=== PATIENT | male | born 1955 | race Caucasian/White ===

== ENCOUNTER → 2016-08-09 | Outpatient (CLI) | payer MEDICAID ==
[2016-08-09 11:08] LABS: ALT 37 U/L (21-72); AST 22 U/L (17-59); Cholesterol 165 mg/dL (<200); Creatine Kinase 94 U/L (55-170); HDL Cholesterol 49 mg/dL (40-60); Triglycerides 180 mg/dL (<150)
== END | disposition home or self-care (01) ==
LOC: LABWHC1 09:38
PROVIDERS: ATTEND Internal Medicine Interventional Cardiology
DX: I25.10 Atherosclerotic heart disease of native coronary artery without angina pectoris (principal); E78.5 Hyperlipidemia, unspecified
CPT/HCPCS: 36415; 80061; 82550; 84450; 84460

== ENCOUNTER → 2016-08-23 | Outpatient (CLI) | payer MEDICAID ==
[~2016-08-23] MED LIST: REGADENOSON 0.4 MG/5 ML SYRINGE IV ONE
--- NOTE | 2016-08-23 12:03 | NM ---
EXAMINATION TYPE: NM stress lexiscan cardiolite DATE OF EXAM: 08/23/2016 11:54 AM COMPARISON: 01/29/2013 HISTORY: Chest pain TECHNIQUE: After the intravenous administration of 10.7 mCi Tc 99m Sestamibi - Cardiolite resting SP ECT images acquired 50 minutes post injection. The patient received 0.4mg Lexiscan, 27.2 mCi Tc 99m Sestamibi - Stress images obtained [address] injection FINDINGS: Review of stress and rest SPECT images demonstrates fixed defect involving the inferior myocardium. G ated analysis shows normal wall motion with an estimated left ventricular ejection fraction of 61 %. IMPRESSION: No scintigraphic evidence for reversible ischemia.
--- NOTE | 2016-08-23 12:43 | EST ---
DATE OF SERVICE: 08/23/2016 AGE: 61Y SEX: M HT: 5'5" WT: 180 lbs. Protocol Blair: Other: Lexiscan Cardiolite Stage: Dur. of Exercise: *Heart Rate Blood Pressure *Rest: 54 Rest: 158/88 * *Max. Achieved: 94 Maximum BP: 194/105 85% PMHR: 134 100% PMHR: 158 *METS: INDICATION OF THE STUDY: Chest pain. MEDICATIONS: STRESS DATA: Pretesting physical examination showed a heart rate of 54, pressure is 158/88 mmHg. Baseline EKG showed sinus rhythm. The patient was given 0.4 mg Lexiscan over 15 seconds per protocol. The max heart rate was 94 beats per minute and maximum blood pressure was 194/105 mmHg. Clinically, the patient did not have any symptoms of chest pain or discomfort and the EKG did not show any significant ST or T wave abnormalities consistent with ischemia. CONCLUSION: 1. Nondiagnostic electrocardiogram stress testing in response to Lexiscan. 2. Please follow up on the Cardiolite portion on a separate report from radiology department.
== END | disposition home or self-care (01) ==
LOC: RADNMMAIN 08:12
PROVIDERS: ATTEND Internal Medicine Interventional Cardiology
DX: I20.9 Angina pectoris, unspecified (principal); I25.2 Old myocardial infarction
CPT/HCPCS: 93017; 78452; A9500; J2785

== ENCOUNTER → 2017-10-16 | Outpatient (CLI) | payer MEDICAID ==
[2017-10-16 09:10] LABS: ALT 28 U/L (21-72); AST 24 U/L (17-59); Cholesterol 157 mg/dL (<200); Creatine Kinase 106 U/L (55-170); HDL Cholesterol 46 mg/dL (40-60); LDL Cholesterol,Calculated 59 mg/dL (0-99); Triglycerides 258 mg/dL (<150)
== END | disposition home or self-care (01) ==
LOC: LABWHC1 08:16
PROVIDERS: ATTEND Internal Medicine Interventional Cardiology
DX: E78.2 Mixed hyperlipidemia (principal)
CPT/HCPCS: 36415; 80061; 82550; 84450; 84460

== ENCOUNTER → 2019-07-29 | Outpatient (CLI) | payer MEDICARE ==
--- NOTE | 2019-07-29 10:56 | NM ---
EXAMINATION TYPE: NM stress lexiscan cardiolite DATE OF EXAM: 07/29/2019 COMPARISON: Prior exam 08/23/2016 HISTORY: Cardiovascular disease TECHNIQUE: After the intravenous administration of 10.42 mCi Tc 99m Sestamibi - Cardiolite resting S PECT images acquired 45 minutes post injection. The patient received 0.4mg Lexiscan, 24.9 mCi Tc 99m Sestamibi - Stress images obtained [address] injection FINDINGS: Review of stress and rest SPECT images demonstrates decreased uptake along the inferior lateral left ventricle towards the cardiac apex on stress as compared to rest images, some decreased uptake is not ed towards the apex on both stress and rest images. Gated analysis shows normal wall motion with an estimated left ventricular ejection fraction of 60 %. 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 This message alert has been sent to Rosalee vega MD via the preferences provided by the clinician for the receipt of Radiology Critical Findings . Message ID [id number].
--- NOTE | 2019-07-29 13:27 | EST ---
EXERCISE STRESS DATE OF SERVICE: 07/29/2019 AGE: 64 SEX: Male HT: 68" WT: 206 pounds PROTOCOL: Lexiscan Cardiolite STAGE: DURATION OF EXERCISE: HEART RATE REST: 63 BLOOD PRESSURE REST: 146/93 MAXIMUM HEART RATE ACHIEVED: 87 MAXIMUM BLOOD PRESSURE: 156/80 85% MPHR: 100% MPHR: METS: INDICATIONS: Cardiovascular disease. CLINICAL INFORMATION: Lexiscan nuclear study was performed. Peak heart rate of 87 was achieved. Maximum blood pressure 156/80 mmHg was noted. Resting EKG shows a normal sinus rhythm with normal AK interval and QRS duration and normal ST-T waves. No ST-segment depression suggestive of ischemia is noted. The results of the nuclear study will follow. MMODL / IJN: [id number] /
== END | disposition home or self-care (01) ==
LOC: RADNMMAIN 07:34
PROVIDERS: ATTEND Internal Medicine Interventional Cardiology
DX: I25.10 Atherosclerotic heart disease of native coronary artery without angina pectoris (principal)
CPT/HCPCS: 93017; 78452; A9500; J2785

== ENCOUNTER → 2019-07-31 | Outpatient (CLI) | payer MEDICARE ==
[2019-07-31 10:51] LABS: HCT 47.6 % (39.0-53.0); HGB 15.4 gm/dL (13.0-17.5); MCH 30.4 pg (25.0-35.0); MCHC 32.4 g/dL (31.0-37.0); MCV 93.8 fL (80.0-100.0); Mean Platelet Volume 7.1; Platelet Count 395 k/uL (150-450); RBC 5.08 m/uL (4.30-5.90); RDW 12.9 % (11.5-15.5); WBC 8.5 k/uL (3.8-10.6)
[2019-07-31 11:05] LABS: African American GFR (CKD) >90 (>60 ml/min/1.73 sqM); Anion Gap 7 mmol/L; Blood Urea Nitrogen 12 mg/dL (9-20); Carbon Dioxide 30 mmol/L (22-30); Chloride 104 mmol/L (98-107); Glucose 93 mg/dL (74-99); Non-African American GFR(CKD) >90 (>60 ml/min/1.73 sqM); Potassium 5.3 mmol/L (3.5-5.1); Sodium 141 mmol/L (137-145)
== END | disposition home or self-care (01) ==
LOC: LABPAT 09:38
PROVIDERS: ATTEND Internal Medicine Interventional Cardiology
DX: Z01.812 Encounter for preprocedural laboratory examination (principal); I25.10 Atherosclerotic heart disease of native coronary artery without angina pectoris; I10 Essential (primary) hypertension
CPT/HCPCS: 80051; 82565; 82947; 84520; 85027

== ENCOUNTER 2019-08-13 06:18 | Day surgery (SDC) | payer MEDICARE ==
[2019-08-11 09:40] VITALS: BMI 31.0
[~2019-08-13 06:18] MED LIST changes: +ALPRAZolam 0.25 MG TAB PO PRN; +ALPRAZolam 0.5 MG TAB PO PRN; +NITROGLYCERIN SL TABS 0.4 MG TAB SUBLINGUAL PRN; -REGADENOSON 0.4 MG/5 ML SYRINGE IV ONE; +SODIUM CHLORIDE 0.9% 1,000 ML in EMPTY BAG 1 BAG IV ONE
[2019-08-13] MEDS ORDERED: ATORVASTATIN 80 MG TAB PO ONE (07:00)
[2019-08-13] MEDS ORDERED: ASPIRIN 325 MG TAB PO ONE (07:00)
[2019-08-13] MEDS ORDERED: VERAPAMIL 2.5 MG/ML 2 ML AMP ONE (07:17)
[2019-08-13] MEDS ORDERED: LIDOCAINE 1% INJ 10MG/ML (20 ML MDV) ONE (07:17)
[2019-08-13] MEDS ORDERED: HEPARIN SODIUM 1,000 UN/ML (10ML VL) ONE (07:17)
[2019-08-13] MEDS: MIDAZOLAM 2 MG/2 ML VIAL IV ONE ×2 (07:46→07:57)
[2019-08-13] MEDS ORDERED: LIDOCAINE 1% INJ 10MG/ML (20 ML MDV) SQ ONE (07:50)
[2019-08-13] MEDS: VERAPAMIL SYRINGE (5 MG/10 ML) INTRAARTER ONE ×2 (07:52→08:34)
[2019-08-13] MEDS ORDERED: HYDROmorphone 1 MG/ML 1 ML SYRINGE ONE (07:53)
[2019-08-13] MEDS ORDERED: HYDROmorphone 1 MG/ML 1 ML SYRINGE IVP ONE (07:56)
[2019-08-13] MEDS ORDERED: BIVALIRUDIN BOLUS 250 MG/50 ML IV ONE (08:09)
[2019-08-13] MEDS ORDERED: BIVALIRUDIN IV ONE (08:10)
[2019-08-13] MEDS ORDERED: SODIUM CHLORIDE 0.9% IV ONE (08:10)
[2019-08-13] MEDS ORDERED: IOPAMIDOL-370 100ML BTL INJ ONE ×2 (08:22→08:34)
[2019-08-13] MEDS: NITROGLYCERIN 1000MCG/10ML SYRINGE INTRACORON ONE ×2 (08:26→08:32)
[2019-08-13] MEDS ORDERED: TICAGRELOR 90 MG TAB ONE (08:28)
[2019-08-13] MEDS ORDERED: TICAGRELOR 90 MG TAB PO ONE (08:30)
--- NOTE | 2019-08-13 10:35 | CC ---
CARDIAC CATHETERIZATION REPORT DATE OF SERVICE: 08/13/2019 PROCEDURE: 1. Left heart catheterization and coronary angiography. 2. PTCA and stenting of mid circumflex with a drug-eluting stent. PERFORMED BY: Dr. Pretty Lee. Moderate conscious sedation time was 47 minutes. Patient was administered Versed. The oxygen saturation, hemodynamics and EKG were monitored closely. CLINICAL INFORMATION: Mr. Cabrera Terry is a 64-year-old gentleman with a known history of CAD. Since the past 12-14 years, he has had stenting of a circumflex performed. He had a myocardial infarction in the circumflex distribution, had a drug-eluting stent placed in 2007 and the last intervention was in 2010 and 3.0 caliber 18 mm drug-eluting stent was deployed at that time. Because of an abnormal stress test and symptoms of exertional shortness of breath and chest tightness, he came into the office, was advised coronary angiography after due discussion. Risks, benefits, options were explained. PROCEDURE NOTE: Under local anesthesia and strict aseptic precautions, a 6-Mongolian introducer was placed in the right radial artery. I used a JR4 catheter to perform selective coronary angiography of the right coronary artery and a JL4 guide catheter was used to perform intervention of the left system. I used a JL3.5 catheter for selective coronary angiography. Following coronary angiography, I proceeded to perform intervention. CARDIAC CATHETERIZATION FINDINGS: RIGHT CORONARY ARTERY: This is technically a dominant/codominant vessel, has good caliber proximally, some ectasias midportion. No significant disease distally, trifurcates into 3 branches, all of them small in caliber, but no significant disease. LEFT MAIN CORONARY ARTERY: This is a long patent disease-free vessel that bifurcates into LAD and circumflex. LEFT ANTERIOR DESCENDING CORONARY ARTERY: Good caliber vessel, extends along the anterior wall, gives off small septal and diagonal branches. No significant disease in the LAD system, but there are minor diffuse irregularities throughout. LEFT POSTERIOR CIRCUMFLEX CORONARY ARTERY: Technically, probably a codominant vessel, gives off a first obtuse marginal and then there is a stented segment which is patent. At the distal end of the stent and immediately after the stent, there was 80%-90% stenosis after which a second OM comes off and then it continues as a PDA branch. This is a codominant circumflex. There is therefore significant stenosis in the mid circumflex just after the stented segment of nearly 90%. Left ventriculogram was not performed. The same right coronary catheter was used to check LV pressures. IMPRESSION: This patient has normal filling pressures. Left ventricular end-diastolic pressure was about 8-10 mmHg. No gradient across the aortic valve. The codominant RCA is free of significant disease. Circumflex which was stented before is patent but just right after the stent, there was 80%-90% stenosis in the mid circumflex. LAD has minor diffuse irregularities, no significant disease. RECOMMENDATIONS: I recommended PCI of mid circumflex and proceeded to perform in the same setting. PCI PROCEDURE DETAILS: I used a JL4 guide catheter to cannulate the left coronary artery. Initially, a Whisper straight wire was used to cross the lesion, wire was kept distally. I tried to pre-dilated with a 2.5 12 NC trek, but I had difficulty since the 2.5 balloon kept going against the struts of the strands. I then switched over and added another run- through wire. I was able to advance over this run-through wire with the whisper wire as a ml. The 2.5 12 mm long NC Trek balloon and I pre-dilated the lesion. The same balloon was used to pre-dilate the proximal end of the previous stent also. I then deployed a 2.75 caliber, 12 mm Xience stent and deployed this at 14 atmospheres. Excellent angiographic result was achieved. At the junction of the previous stent and the new stent, there is still seemed to be some recoil. I therefore used a 12 mm NC Trek balloon, went up to 17 atmospheres and had an excellent angiographic result. Patient had EKG changes of inferior ST elevation, but no significant chest pain. Excellent angiographic result was achieved. He received Brilinta 180 mg orally and was already on aspirin. He received Angiomax bolus and infusion as per protocol. The sheath was in the right radial site was taken out and TR band applied as per protocol. The saturation of the fingers of the right hand of about 97%. Excellent angiographic result without complication was achieved. Results were discussed with the patient and his . I expect he will be discharged tomorrow if he remains stable. MMODL / IJN: [id number] /
[2019-08-13] MEDS ORDERED: SODIUM CHLORIDE 0.9% 1,000 ML IV ONE (11:30)
[2019-08-13 12:08] LABS: Glucose,Whole Blood 112 mg/dL (75-99)
[2019-08-13] MEDS ORDERED: LISINOPRIL 10 MG TAB PO SCH ×2 (13:09→21:00)
[2019-08-13] MEDS ORDERED: LISINOPRIL 20 MG TAB PO STA (13:15)
[2019-08-13] MEDS: SODIUM CHLORIDE 0.9% 1,000 ML IV SCH (14:28)
[2019-08-13] MEDS: NICOTINE 21MG/24HR PATCH TRANSDERM SCH (16:06)
[2019-08-13] MEDS ORDERED: amLODIPine 5 MG TAB PO STA (18:03)
[2019-08-14] MEDS: SODIUM CHLORIDE 0.9% 1,000 ML IV SCH (02:19)
[2019-08-14 06:15] VITALS: TEMP 97.7
[2019-08-14 07:58] VITALS: BP 146/90; PULSE 80; RESP 18
[2019-08-14] MEDS ORDERED: ASPIRIN 81 MG PO SCH (09:00)
[2019-08-14] MEDS ORDERED: METOPROLOL SUCCINATE (ER) 25 MG TAB.ER.24H PO SCH (09:00)
[2019-08-14] MEDS ORDERED: TICAGRELOR 90 MG TAB PO SCH (09:00)
[2019-08-14] MEDS: NICOTINE 21MG/24HR PATCH TRANSDERM SCH (09:19)
[2019-08-14 09:31] LABS: Basophils # (A) 0.1 k/uL (0-0.2); Basophils % (A) 1 %; Eosinophils # (A) 0.3 k/uL (0-0.7); Eosinophils % (A) 3 %; HCT 48.1 % (39.0-53.0); HGB 15.9 gm/dL (13.0-17.5); Lymphocytes % (A) 34 %; MCH 30.6 pg (25.0-35.0); MCV 92.6 fL (80.0-100.0); Mean Platelet Volume 7.3; Monocytes # (A) 0.5 k/uL (0-1.0); Monocytes % (A) 5 %; Neutrophils # (A) 4.8 k/uL (1.3-7.7); Neutrophils % (A) 55 %; Platelet Count 262 k/uL (150-450); RDW 13.3 % (11.5-15.5); WBC 8.8 k/uL (3.8-10.6)
[2019-08-14 09:48] LABS: African American GFR (CKD) >90 (>60 ml/min/1.73 sqM); Anion Gap 6 mmol/L; Blood Urea Nitrogen 11 mg/dL (9-20); Calcium 9.5 mg/dL (8.4-10.2); Carbon Dioxide 27 mmol/L (22-30); Chloride 104 mmol/L (98-107); Glucose 97 mg/dL (74-99); Non-African American GFR(CKD) >90 (>60 ml/min/1.73 sqM); Potassium 4.2 mmol/L (3.5-5.1); Sodium 137 mmol/L (137-145)
--- NOTE | 2019-08-14 13:31 | DS ---
DISCHARGE SUMMARY DATE OF ADMISSION: 08/13/2019 DATE OF DISCHARGE: 08/14/2019 DIAGNOSES: 1. Unstable angina with history of prior myocardial infarction. 2. Hypertension. 3. Hyperlipidemia. 4. Smoking and chronic obstructive pulmonary disease. 5. Peripheral arterial disease with right lower extremity moderate ischemia. Mr. Terry is a 64-year-old gentleman who continues to smoke, has had previous [place] in the circumflex distribution, underwent stenting on multiple occasions. Because of an abnormal stress test and exertional chest tightness and shortness of breath, he was brought in for an elective cardiac cath that was performed yesterday from right radial approach. Study revealed a significant 80% or more lesion involving the midcircumflex just beyond the previously stented segment. The left system and RCA were unchanged with minor irregularities. I performed stenting of this vessel with a drug eluting stent with excellent result. Postprocedure course was uneventful. His right radial cath site is clean and dry with a good pulse. Vitals are stable. No JVD. S1, S2 heard normally. Lungs are clear. Abdomen, lower extremity exam unchanged. Right radial cath site is clean and dry. The patient had some bradycardia yesterday while he was being monitored. The patient has underlying sleep apnea and I am recommending a sleep study. I gave him a prescription and this will be scheduled for him before he goes home. I reviewed all his medications. He will be on aspirin, Brilinta, combination of Zetia and simvastatin, a small dose of beta blockers, and lisinopril. He was advised smoking cessation which he is willing to try this time. He has been very persistent on not intending to quit smoking but now seems to be more receptive. Discharge instructions regarding activity, diet, medications were given. Labs were reviewed and were unremarkable. He was given an appointment to see me on August 18 at 3:00 p.m. He is advised to work with smoking cessation. MMODL / IJN: [id number] /
[2019-08-14] MEDS ORDERED: ATORVASTATIN 80 MG TAB PO SCH (21:00)
[2019-08-14] MEDS ORDERED: LISINOPRIL 10 MG TAB PO SCH (21:00)
== END 2019-08-14 10:51 | disposition home or self-care (01) ==
LOC: CATHCVL 06:18 → 3SCARD 11:46 → CATHCVL 08-14 10:51
PROVIDERS: ATTEND Internal Medicine Interventional Cardiology
DX: I25.110 Atherosclerotic heart disease of native coronary artery with unstable angina pectoris (principal); I25.2 Old myocardial infarction; I10 Essential (primary) hypertension; I73.9 Peripheral vascular disease, unspecified; E78.5 Hyperlipidemia, unspecified; E78.00 Pure hypercholesterolemia, unspecified; J44.9 Chronic obstructive pulmonary disease, unspecified; F17.210 Nicotine dependence, cigarettes, uncomplicated
CPT/HCPCS: 93458; 80048; 85025; C9600; C1769 ×3; C1887; C1725 ×2; C1874; C1894; S4990 ×2; J2250; J2001; J1170; J0583; J1644; Q9967

== ENCOUNTER 2020-02-14 18:45 | Observation (INO) | payer MEDICARE ==
--- NOTE | 2020-02-14 18:57 | ED ---
Chest Pain HPI - General Stated Complaint: chest pain Time Seen by Provider: 02/14/20 18:53 - Related Data Home Medications Medication Instructions Recorded Confirmed Ezetimibe [Zetia] 10 mg PO DAILY 08/11/19 08/13/19 Metoprolol Succinate [Toprol XL] 25 mg PO DAILY 08/11/19 08/13/19 Simvastatin [Zocor] 40 mg PO HS 08/11/19 08/13/19 lisinopriL [Zestril] 10 mg PO HS 08/11/19 08/13/19 Previous Rx's Medication Instructions Recorded Aspirin 81 mg PO DAILY #30 chew 08/14/19 Nicotine 21Mg/24Hr Patch [Habitrol] 1 patch TRANSDERM DAILY #30 patch 08/14/19 Nitroglycerin Sl Tabs [Nitrostat] 0.4 mg SUBLINGUAL Q5M PRN #25 tab 08/14/19 Ticagrelor [Brilinta] 90 mg PO BID #60 tab 08/14/19 Allergies Allergy/AdvReac Type Severity Reaction Status Date / Time No Known Allergies Allergy Verified 08/11/19 09:33 Review of Systems ROS Statement: Those systems with pertinent positive or pertinent negative responses have been documented in the HPI. ROS Other: All systems not noted in ROS Statement are negative. EKG Findings - EKG Comments: EKG Findings:: EKG is sinus rhythm 70. 174 QRS 100 QTc 435 Past Medical History Past Medical History: Cancer, Eye Disorder, Hyperlipidemia, Hypertension, Myocardial Infarction (HI) Additional Past Medical History / Comment(s): GLAUCOMA LT EYE. HX SKIN CANCER ON FACE. STENT CIRC 08/13/19 Last Myocardial Infarction Date:: 2011 History of Any Multi-Drug Resistant Organisms: None Reported Past Surgical History: Heart Catheterization With Stent Past Anesthesia/Blood Transfusion Reactions: No Reported Reaction Date of Last Stent Placement:: 2011 Past Psychological History: No Psychological Hx Reported Past Alcohol Use History: Occasional Additional Past Alcohol Use History / Comment(s): SMOKES ABOUT 1PPD SINCE AGE 24 Past Drug Use History: Marijuana Additional Drug Use History / Comment(s): SMOKES MARIJUANA DAILY-KNOWS TO REFRAIN FROM USE FOR AT LEAST 24 HOURS PRIOR TO PROCEDURE - Past Family History Father Family Medical History: Cancer Mother Family Medical History: Cancer Course Vital Signs 02/14/20 02/14/20 18:53 19:19 Temperature 100.6 F H Pulse Rate 79 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
[2020-02-14 19:23] LABS: Basophils # (A) 0.1 k/uL (0-0.2); Basophils % (A) 1 %; Eosinophils # (A) 0.8 k/uL (0-0.7); Eosinophils % (A) 6 %; HCT 40.6 % (39.0-53.0); HGB 13.4 gm/dL (13.0-17.5); Lymphocytes # (A) 2.5 k/uL (1.0-4.8); Lymphocytes % (A) 21 %; MCH 29.7 pg (25.0-35.0); MCV 90.2 fL (80.0-100.0); Mean Platelet Volume 7.4; Monocytes # (A) 0.8 k/uL (0-1.0); Monocytes % (A) 7 %; Neutrophils # (A) 7.4 k/uL (1.3-7.7); Neutrophils % (A) 64 %; Platelet Count 309 k/uL (150-450); RDW 12.9 % (11.5-15.5); WBC 11.7 k/uL (3.8-10.6)
[2020-02-14 19:33] LABS: Glucose 101 mg/dL (74-99); Total Protein 6.4 g/dL (6.3-8.2)
[2020-02-14 19:34] LABS: ALT 10 U/L (4-49); AST 14 U/L (17-59); African American GFR (CKD) >90 (>60 ml/min/1.73 sqM); Albumin 3.8 g/dL (3.5-5.0); Alkaline Phosphatase 64 U/L (38-126); Anion Gap 7 mmol/L; Blood Urea Nitrogen 14 mg/dL (9-20); Calcium 8.8 mg/dL (8.4-10.2); Carbon Dioxide 25 mmol/L (22-30); Chloride 101 mmol/L (98-107); Non-African American GFR(CKD) >90 (>60 ml/min/1.73 sqM); Potassium 4.2 mmol/L (3.5-5.1); Sodium 133 mmol/L (137-145); Total Bilirubin 0.8 mg/dL (0.2-1.3)
[2020-02-14 19:40] LABS: D-Dimer 1.04 mg/L FEU (<0.60); INR 0.9 (<1.2); Partial Thromboplastin Time 26.5 sec (22.0-30.0); Prothrombin Time 9.8 sec (9.0-12.0)
--- NOTE | 2020-02-14 19:50 | XR ---
EXAMINATION TYPE: XR chest 2V DATE OF EXAM: 02/14/2020 COMPARISON: 07/19/2008 HISTORY: Chest pain TECHNIQUE: FINDINGS: Heart and mediastinum are normal. There is coarse interstitial density throughout the lungs . There is relative poor inspiration. There are no hilar masses. There are chest leads. IMPRESSION: Coarse pulmonary density consistent with pulmonary fibrosis. This is a change compared to old exam. No heart failure seen. Acute interstitial pneumonia is possible.
[2020-02-14] MEDS ORDERED: NITROGLYCERIN SL TABS 0.4 MG TAB SUBLINGUAL PRN (20:15)
[2020-02-14] MEDS ORDERED: MORPHINE SULFATE 4 MG/ML SYRINGE IV PRN (20:15)
[2020-02-14] MEDS ORDERED: HEPARIN SODIUM,PORCINE 5,000 UNIT/ML 1 ML VIAL IV ONE (20:34)
[2020-02-14] MEDS ORDERED: HEPARIN SODIUM,PORCINE 5,000 UNIT/ML 1 ML VIAL IV PRN (20:34)
[2020-02-14] MEDS ORDERED: HEPARIN SOD,PORK IN 0.45% NACL 25,000 UNIT in 0.45% NACL 1 250ML.BAG IV SCH (20:45)
[2020-02-14] MEDS ORDERED: METOPROLOL TARTRATE 25 MG TAB PO SCH (21:00)
--- NOTE | 2020-02-14 21:21 | CT ---
EXAMINATION TYPE: CT angio chest DATE OF EXAM: 02/14/2020 COMPARISON: None HISTORY: Chest pain and shortness of breath. Post cardiac stent in Aug 2019. CT DLP: 569.9 mGycm Automated exposure control for dose reduction was used. CONTRAST: Performed with IV Contrast, patient injected with 100 mL of Isovue 370. There are 3-D post processed images. There is a 5.5 cm area of masslike infiltrate in the posterior left lower lobe posterior basal segmen t behind the heart. There is small left pleural effusion. There are scattered numerous noncalcified n odular densities in both lungs that measure up to 12 mm. There are enlarged paratracheal and anterior mediastinal multiple lymph nodes that measure up to 2.3 cm. There is subcarinal enlarged lymph node measuring 2.5 cm. There is bilateral bronchial adenopathy with lymph nodes up to 2 cm. There is normal contrast opacification of the pulmonary arteries. There are no filling defects. There is some anterior wedging of several mid thoracic vertebra up to 25%. There is spurring in the t horacic spine. The ribs appear intact. The upper abdominal soft tissues are intact. IMPRESSION: Numerous bilateral pulmonary nodules suggestive of malignancy. This could be metastatic disease. Mass like consolidation left lower lobe. I would consider both tumor and inflammatory process. Extensive bronchial and mediastinal adenopathy suggestive of malignancy. Sarcoidosis is in the differential diagnosis. No evidence of pulmonary embolism.
[2020-02-14] MEDS ORDERED: MELATONIN 5 MG TABLET PO SCH (23:15)
[2020-02-15 02:45] LABS: Basophils # (A) 0.1 k/uL (0-0.2); Basophils % (A) 1 %; Eosinophils % (A) 8 %; HCT 41.5 % (39.0-53.0); HGB 13.6 gm/dL (13.0-17.5); Lymphocytes # (A) 2.8 k/uL (1.0-4.8); Lymphocytes % (A) 24 %; MCH 29.8 pg (25.0-35.0); MCHC 32.7 g/dL (31.0-37.0); MCV 91.3 fL (80.0-100.0); Monocytes # (A) 0.8 k/uL (0-1.0); Monocytes % (A) 7 %; Neutrophils # (A) 6.9 k/uL (1.3-7.7); Neutrophils % (A) 59 %; Platelet Count 308 k/uL (150-450); RBC 4.55 m/uL (4.30-5.90); RDW 12.9 % (11.5-15.5); WBC 11.7 k/uL (3.8-10.6)
[2020-02-15 02:53] LABS: Cholesterol 101 mg/dL (<200); HDL Cholesterol 35 mg/dL (40-60); LDL Cholesterol,Calculated 30 mg/dL (0-99); Triglycerides 181 mg/dL (<150)
[2020-02-15 04:58] VITALS: TEMP 98
[2020-02-15 08:03] VITALS: BP 137/70; PULSE 71; RESP 16
[2020-02-15] MEDS ORDERED: ASPIRIN 81 MG PO SCH (09:00)
[2020-02-15] MEDS ORDERED: NICOTINE 14MG/24HR PATCH TRANSDERM SCH (09:00)
[2020-02-15] MEDS ORDERED: EZETIMIBE 10 MG TAB PO SCH (09:00)
[2020-02-15] MEDS ORDERED: CLOPIDOGREL 75 MG TAB PO SCH (09:00)
[2020-02-15] MEDS ORDERED: METOPROLOL TARTRATE 25 MG TAB PO SCH (09:00)
[2020-02-15] MEDS ORDERED: lisinopriL 10 MG TAB PO SCH (09:00)
[2020-02-15] MEDS ORDERED: ASPIRIN 325 MG TAB PO SCH (09:00)
[2020-02-15] MEDS ORDERED: ATORVASTATIN 80 MG TAB PO SCH (09:00)
--- NOTE | 2020-02-15 09:40 | P.CRDCN ---
History of Present Illness History of present illness: HISTORY OF PRESENTING ILLNESS This is a pleasant 64-year-old male past medical history significant for with coronary artery disease with recent PCI maintained on dual antiplatelet therapy, myocardial infarction 2010, hypertension, dyslipidemia, chronic nicotine dependence and daily marijuana use. He follows in the office with Dr. Lee. We have been asked to see in consultation for chest pain. He complains of a tightness across the chest started Saturday night while he was sitting down watching TV, was relieved at times with nitro but continued to come back all day Saturday prompting him to come in for evaluation. has also been coughing frequently. denies sob, dizziness, nausea, vomiting or diaphoresis. He states he has been coughing however his discomfort is not associated with this cough. He was febrile on admission. Of note according to the patient has chest dis comfort is different than his experienced in the past when he has required stenting. In July 2019 he underwent a Lexiscan stress test that revealed ovi-infarct pharmacologically induced ischemia. Prompting a cardiac catheterization. In August 2019 and left heart cath was performed revealing RCA with no obstructive disease with ectasia in the midportion, left main free of disease, LAD with no significant disease, circumflex with a stenosis in the midportion and nearly 90%, patent stent of the first OM with disease noted distal to the stent of approximately 80-90%. At that time he underwent successful angioplasty of the circumflex artery. DIAGNOSTICS EKG reveals sinus mechanism with no acute ST or T wave abnormalities noted. Chest xray coarse density consistent with pulmonary fibrosis that is a change compared to previous exam, acute interstitial pneumonia possible, no heart niharika lure seen. CTA of the chest reveals numerous bilateral pulmonary nodules suggestive of malignancy with a masslike consolidation in left lower lobe consideration for tumor versus inflammatory process, extensive bronchial and mediastinal adenopathy suggestive of malignancy also noted. Laboratory reviewed, WBC 11.7, hemoglobin 13.6, platelets 308, d-dimer 1.04, sodium 133, potassium 4.2, creatinine 0.82, magnesium 2.0, cardiac enzymes negative 3, NT proBNP 69, LDL 30 and HDL 35. Current cardiac medications include aspirin 81 mg daily, Plavix 75 mg daily, Zetia/simvastatin 10/40 mg daily, lisinopril 10 mg twice a day and Lopressor 25 mg daily.. REVIEW OF SYSTEMS At the time of my exam: CONSTITUTIONAL: Denies fever or chills. CARDIOVASCULAR: Denies chest pain, shortness of breath, orthopnea, PND or palpitations. RESPIRATORY: Denies cough. GASTROINTESTINAL: Denies abdominal pain, diarrhea, constipation, nausea or vomiting. MUSCULOSKELETAL: Denies myalgias. NEUROLOGIC: Denies numbness, tingling or weakness. ENDOCRINE: Denies fatigue, weight change, polydipsia or polyurina. GENITOURINARY: Denies burning, hematuria or urgency with micturation. HEMATOLOGIC: Denies history of anemia or bleeding. PHYSICAL EXAMINATION Blood pressure 137/70 heart rate 71 afebrile and maintaining oxygen saturation on room air. CONSTITUTIONAL: No apparent distress. HEENT: Head is normocephalic. Pupils are equal, round. Sclerae anicteric. Mucous membranes of the mouth are moist. No JVD. No carotid bruit. CHEST EXAMINATION: Lungs are clear to auscultation. No chest wall tenderness is noted on palpation or with deep breathing. HEART EXAMINATION: Regular rate and rhythm. S1, S2 heard. No murmurs, gallops or rub. ABDOMEN: Soft, nontender. Positive bowel sounds. EXTREMITIES: 2+ peripheral pulses, no lower extremity edema and no calf tenderness. NEUROLOGIC EXAMINATION: Patient is awake, alert and oriented x3. ASSESSMENT Chest pain Febrile illness Multiple lung nodules, malignancy versus inflammatory process Coronary artery disease maintained on dual antiplatelet therapy History of myocardial infarction 2010 Hypertension Dyslipidemia Chronic nicotine dependence Daily marijuana use PLAN An acute coronary event has been ruled out. Obtain 2D echocardiogram and doppler study to assess cardiac structure and function. Continue dual anti-platelet therapy and maximize his medical therapy in regards to cardiac pending pulmonary evaluation. Thank you kindly for this consultation. Nurse Practitioner note has been reviewed, I agree with a documented findings and plan of care. Patient was seen and examined. Past Medical History Past Medical History: Cancer, Eye Disorder, Hyperlipidemia, Hypertension, Myocardial Infarction ([place]) Additional Past Medical History / Comment(s): GLAUCOMA LT EYE. HX SKIN CANCER ON FACE. STENT CIRC 08/13/19 Last Myocardial Infarction Date:: 2011 History of Any Multi-Drug Resistant Organisms: None Reported Past Surgical History: Heart Catheterization With Stent Past Anesthesia/Blood Transfusion Reactions: No Reported Reaction Date of Last Stent Placement:: 2011 Past Psychological History: No Psychological Hx Reported Smoking Status: Current every day smoker Past Alcohol Use History: Occasional Additional Past Alcohol Use History / Comment(s): SMOKES ABOUT 1PPD SINCE AGE 24 Past Drug Use History: Marijuana Additional Drug Use History / Comment(s): SMOKES MARIJUANA DAILY-KNOWS TO REFRAIN FROM USE FOR AT LEAST 24 HOURS PRIOR TO PROCEDURE - Past Family History Father Family Medical History: Cancer Mother Family Medical History: Cancer Medications and Allergies Home Medications Medication Instructions Recorded Confirmed Type lisinopriL [Zestril] 10 mg PO BID 08/11/19 02/14/20 History Aspirin 81 mg PO DAILY #30 chew 08/14/19 02/14/20 Rx Nitroglycerin Sl Tabs [Nitrostat] 0.4 mg SUBLINGUAL Q5M PRN #25 tab 08/14/19 02/14/20 Rx Clopidogrel [Plavix] 75 mg PO DAILY 02/14/20 02/14/20 History Ezetimibe/Simvastatin [Vytorin 1 tab PO DAILY 02/14/20 02/14/20 History 10-40 mg] Metoprolol Tartrate [Lopressor] 25 mg PO DAILY 02/14/20 02/14/20 History Allergies Allergy/AdvReac Type Severity Reaction Status Date / Time No Known Allergies Allergy Verified 02/14/20 21:08 Physical Exam Vitals: Vital Signs Temp Pulse Pulse Pulse Resp BP BP 02/15/20 08:01 98 F 71 16 137/70 02/15/20 04:40 98 F 88 19 132/70 02/14/20 22:41 98.3 F 77 19 120/70 02/14/20 21:55 99.1 F 73 20 106/68 02/14/20 21:00 78 18 02/14/20 20:30 80 20 114/90 02/14/20 19:19 75 02/14/20 18:53 100.6 F H 79 21 124/71 Pulse Ox 02/15/20 08:01 96 02/15/20 04:40 95 02/14/20 22:41 94 L 02/14/20 21:55 93 L 02/14/20 21:00 95 02/14/20 20:30 94 L 02/14/20 19:19 02/14/20 18:53 96 Intake and Output 02/14/20 02/15/20 02/15/20 22:59 06:59 14:59 Intake Total 52.151 Balance 52.151 Intake: Intake, IV Titration 52.151 Amount Heparin Sod,Pork in 0.45% 52.151 NaCl 25,000 unit In 0.45 % NaCl 1 250ml.bag @ 11.6 UNITS/KG/HR 9.997 mls/hr IV .Q24H [facility] Rx#: [id number] Other: Voiding Method Toilet Toilet # Voids 1 Weight 86.183 kg Results 02/15/20 02:33 02/14/20 19:14 Cardiac Enzymes 02/14/20 02/14/20 02/14/20 Range/Units 19:14 19:14 22:28 AST 14 L (17-59) U/L Troponin I <0.012 <0.012 (0.000-0.034) ng/mL 02/15/20 Range/Units 02:33 AST (17-59) U/L Troponin I <0.012 (0.000-0.034) ng/mL Coagulation 02/14/20 02/15/20 Range/Units 19:14 02:33 PT 9.8 (9.0-12.0) sec APTT 26.5 24.6 (22.0-30.0) sec Lipids 02/15/20 Range/Units 02:33 Triglycerides 181 H (<150) mg/dL Cholesterol 101 (<200) mg/dL HDL Cholesterol 35 L (40-60) mg/dL CBC 02/14/20 02/15/20 Range/Units 19:14 02:33 WBC 11.7 H 11.7 H (3.8-10.6) k/uL RBC 4.50 4.55 (4.30-5.90) m/uL Hgb 13.4 13.6 (13.0-17.5) gm/dL Hct 40.6 41.5 (39.0-53.0) % Plt Count 309 308 (150-450) k/uL Comprehensive Metabolic Panel 02/14/20 Range/Units 19:14 Sodium 133 L (137-145) mmol/L Potassium 4.2 (3.5-5.1) mmol/L Chloride 101 (98-107) mmol/L Carbon Dioxide 25 (22-30) mmol/L BUN 14 (9-20) mg/dL Creatinine 0.82 (0.66-1.25) mg/dL Glucose 101 H (74-99) mg/dL Calcium 8.8 (8.4-10.2) mg/dL AST 14 L (17-59) U/L ALT 10 (4-49) U/L Alkaline Phosphatase 64 (38-126) U/L Total Protein 6.4 (6.3-8.2) g/dL Albumin 3.8 (3.5-5.0) g/dL Current Medications Generic Name Dose Route Start Last Admin Trade Name Freq PRN Reason Stop Dose Admin Aspirin 81 mg 02/15/20 09:00 Aspirin PO DAILY [facility] Atorvastatin Calcium 80 mg 02/15/20 09:00 Lipitor PO DAILY [facility] Clopidogrel Bisulfate 75 mg 02/15/20 09:00 Plavix PO DAILY [facility] Heparin Sodium (Porcine) 0 unit 02/14/20 20:34 02/15/20 03:05 Heparin IV 4,000 unit PER PROTOCOL PRN Administration Low PTT Protocol Lisinopril 10 mg 02/15/20 09:00 Zestril PO BID [facility] Melatonin 5 mg 02/14/20 23:15 02/14/20 23:19 Melatonin PO 5 mg HS [facility] Administration Metoprolol Tartrate 25 mg 02/15/20 09:00 Lopressor PO DAILY [facility] Morphine Sulfate 4 mg 02/14/20 20:15 Morphine Sulfate (Inj) IV Q4HR PRN Chest Pain Nicotine 1 patch 02/15/20 09:00 Habitrol 14mg/24hr Patch TRANSDERM DAILY [facility] Nitroglycerin 0.4 mg 02/14/20 20:15 Nitrostat SUBLINGUAL Q5M PRN Chest Pain Non-Formulary Medication 1 tab 02/15/20 09:00 Ezetimibe/Simvastatin [Vytorin 10-40 Mg] PO DAILY [facility] Intake and Output 02/14/20 02/15/20 02/15/20 22:59 06:59 14:59 Intake Total 52.151 Balance 52.151 Intake: Intake, IV Titration 52.151 Amount Heparin Sod,Pork in 0.45% 52.151 NaCl 25,000 unit In 0.45 % NaCl 1 250ml.bag @ 11.6 UNITS/KG/HR 9.997 mls/hr IV .Q24H [facility] Rx#: [id number] Other: Voiding Method Toilet Toilet # Voids 1 Weight 86.183 kg 02/15/20 02:33 02/14/20 19:14
--- NOTE | 2020-02-15 11:33 | ECHOF ---
Referral Reason: MEASUREMENTS -------- HEIGHT: 172.7 cm WEIGHT: 86.2 kg BP: 137/70 RVIDd: 3.4 cm (< 3.3) IVSd: 1.3 cm (0.6 - 1.1) LVIDd: 4.0 cm (3.9 - 5.3) LVPWd: 1.3 cm (0.6 - 1.1) IVSs: 1.8 cm LVIDs: 2.9 cm LVPWs: 1.8 cm LA Diam: 3.6 cm (2.7 - 3.8) LAESV Index (A-L): 21.73 ml/m Ao Diam: 3.5 cm (2.0 - 3.7) AV Cusp: 2.0 cm (1.5 - 2.6) MV EXCURSION: 13.883 mm (> 18.000) MV EF SLOPE: 70 mm/s (70 - 150) EPSS: 0.6 cm MV E Shashi: 0.72 m/s MV DecT: 248 ms MV A Shashi: 1.00 m/s MV E/A Ratio: 0.73 RAP: 5.00 mmHg RVSP: 27.65 mmHg FINDINGS -------- Sinus rhythm. This was a technically adequate study. The left ventricular size is normal. There is mild concentric left ventricular hypertrophy. Overa ll left ventricular systolic function is normal with, an EF between 60 - 65 %. The right ventricle is mildly enlarged. Normal LA size by volume 22+/-6 ml/m2. The right atrium is normal in size. Interatrial and interventricular septum intact. The aortic valve is trileaflet and appears structurally normal. Mild tricuspid regurgitation present. Right ventricular systolic pressure is normal at < 35 mmHg. Trace/mild (physiologic) pulmonic regurgitation. The aortic root size is normal. Normal inferior vena cava with normal inspiratory collapse consistent with estimated right atrial pre ssure of 5 mmHg. There is no pericardial effusion. CONCLUSIONS -------- 1. Sinus rhythm. 2. The left ventricular size is normal. 3. There is mild concentric left ventricular hypertrophy. 4. Overall left ventricular systolic function is normal with, an EF between 60 - 65 %. 5. The right ventricle is mildly enlarged. 6. The aortic valve is trileaflet and appears structurally normal. 7. Mild tricuspid regurgitation present. 8. Trace/mild (physiologic) pulmonic regurgitation. 9. There is no pericardial effusion. SUPERVISOR QUILTING: Lena Pires RDCS
--- NOTE | 2020-02-15 15:11 | P.CNPUL ---
History of Present Illness Consult date: 02/15/20 Requesting physician: Cynthia Bass Reason for consult: other (Abnormal CT of the chest, chest pain.) Chief complaint: Chest pain. History of present illness: This is a 64-year-old white male with history of coronary artery disease, recent PCI, maintained on antiplatelet therapy, previous TN in 2010, [id number] smoker, normally sees Dr. Lee in the office for his coronary artery disease. Patient presented to the ER mostly with sudden tightness across the chest, started Saturday night, and he was sitting watching TV. Pain was at times relieved with nitroglycerin, but continued to come back and forth throughout Saturday he had patient had no shortness of breath, no fever, no chills, no h emoptysis, denies any weight loss. Patient was seen in the ER, and he was noted to have a low-grade fever. T-max of 100.6. Chest x-ray showed coarse interstitial changes in both lungs. Hence a CT of the chest was done, and it showed numerous bilateral pulmonary nodules, and a masslike consolidation in the left lower lobe. Hence this consult was initiated. Patient denies symptoms to suggest pneumonia, and after reviewing the CT of the chest, I felt the patient may have a mass in the left lower lobe, not clearly seen on the chest x-ray, but definitely seen and quite suspicious on the CT of the chest. I did recommend a CT-guided needle biopsy since the mass seems to be peripheral, however the patient is on Plavix, and I felt this could be handled on outpatient basis. In the meantime, I will recommend empiric antibiotics, and should have close outpatient follow-up. Patient was seen by cardiology, and his pain was felt to be noncardiac in nature, his echocardiogram was basically unremarkable. Review of Systems CONSTITUTIONAL: Denies any weight loss, he has low-grade fever, no chills. CARDIOVASCULAR: As noted in HPI, mostly chest pains across the chest. RESPIRATORY: Denies cough. Denies shortness of breath, denies hemoptysis. GASTROINTESTINAL: Denies abdominal pain, diarrhea, constipation, nausea or vomiting. MUSCULOSKELETAL: Denies myalgias. NEUROLOGIC: Denies numbness, tingling or weakness. ENDOCRINE: Denies fatigue, weight change, polydipsia or polyurina. GENITOURINARY: Denies burning, hematuria or urgency with micturation. HEMATOLOGIC: Denies history of anemia or bleeding. Past Medical History Past Medical History: Cancer, Eye Disorder, Hyperlipidemia, Hypertension, Myocardial Infarction ([place]) Additional Past Medical History / Comment(s): GLAUCOMA LT EYE. HX SKIN CANCER ON FACE. STENT CIRC 08/13/19 Last Myocardial Infarction Date:: 2011 History of Any Multi-Drug Resistant Organisms: None Reported Past Surgical History: Heart Catheterization With Stent Past Anesthesia/Blood Transfusion Reactions: No Reported Reaction Date of Last Stent Placement:: 2011 Past Psychological History: No Psychological Hx Reported Smoking Status: Current every day smoker Past Alcohol Use History: Occasional Additional Past Alcohol Use History / Comment(s): SMOKES ABOUT 1PPD SINCE AGE 24 Past Drug Use History: Marijuana Additional Drug Use History / Comment(s): SMOKES MARIJUANA DAILY-KNOWS TO REFRAIN FROM USE FOR AT LEAST 24 HOURS PRIOR TO PROCEDURE - Past Family History Father Family Medical History: Cancer Mother Family Medical History: Cancer Medications and Allergies Home Medications Medication Instructions Recorded Confirmed Type lisinopriL [Zestril] 10 mg PO BID 08/11/19 02/14/20 History Aspirin 81 mg PO DAILY #30 chew 08/14/19 02/14/20 Rx Nitroglycerin Sl Tabs [Nitrostat] 0.4 mg SUBLINGUAL Q5M PRN #25 tab 08/14/19 02/14/20 Rx Clopidogrel [Plavix] 75 mg PO DAILY 02/14/20 02/14/20 History Ezetimibe/Simvastatin [Vytorin 1 tab PO DAILY 02/14/20 02/14/20 History 10-40 mg] Metoprolol Tartrate [Lopressor] 25 mg PO DAILY 02/14/20 02/14/20 History Allergies Allergy/AdvReac Type Severity Reaction Status Date / Time No Known Allergies Allergy Verified 02/14/20 21:08 Physical Exam Vitals: Vital Signs Temp Pulse Pulse Pulse Resp BP BP 02/15/20 08:01 98 F 71 16 137/70 02/15/20 04:40 98 F 88 19 132/70 02/14/20 22:41 98.3 F 77 19 120/70 02/14/20 21:55 99.1 F 73 20 106/68 02/14/20 21:00 78 18 02/14/20 20:30 80 20 114/90 02/14/20 19:19 75 02/14/20 18:53 100.6 F H 79 21 124/71 Pulse Ox 02/15/20 08:01 96 02/15/20 04:40 95 02/14/20 22:41 94 L 02/14/20 21:55 93 L 02/14/20 21:00 95 02/14/20 20:30 94 L 02/14/20 19:19 02/14/20 18:53 96 Intake and Output 02/15/20 02/15/20 02/15/20 06:59 14:59 22:59 Intake Total 52.151 Balance 52.151 Intake: Intake, IV Titration 52.151 Amount Heparin Sod,Pork in 0.45% 52.151 NaCl 25,000 unit In 0.45 % NaCl 1 250ml.bag @ 11.6 UNITS/KG/HR 9.997 mls/hr IV .Q24H [facility] Rx#: [id number] Other: Voiding Method Toilet Toilet # Voids 1 1 Physical Exam: Revealed a 64-year-old white male in no distress. Head: Atraumatic, normocephalic. HEENT:[Neck is supple.] [No neck masses.] [No thyromegaly.] [No JVD.] Chest: [Minimal fine Velcro crackles at the bases bilaterally. Cardiac Exam: [Normal S1 and S2, no S3 gallop, no murmur.] Abdomen: [Soft, nontender, no megaly, no rebound, no guarding, normal bowel sounds.] Extremities: [No clubbing, no edema, no cyanosis.] Neurological Exam: [No focal neurologic deficit.] Alert oriented 3. Psychiatric: Normal mood affect and normal mental status examination. Skin: No rashes. Lymphatics: No lymphadenopathy. Results - Laboratory Findings CBC and BMP: 02/15/20 02:33 02/14/20 19:14 PT/INR, D-dimer PT 9.8 sec (9.0-12.0) 02/14/20 19:14 INR 0.9 (<1.2) 02/14/20 19:14 D-Dimer 1.04 mg/L FEU (<0.60) H 02/14/20 19:14 Abnormal lab findings: Abnormal Labs 02/14/20 02/14/2020 19:14 19:14 19:14 WBC 11.7 H Eosinophils # 0.8 H D-Dimer 1.04 H Sodium 133 L Glucose 101 H AST 14 L Triglycerides HDL Cholesterol 02/15/20 02/15/20 02:33 02:33 WBC 11.7 H Eosinophils # 1.0 H D-Dimer Sodium Glucose AST Triglycerides 181 H HDL Cholesterol 35 L - Diagnostic Findings CT scan - chest: image reviewed (As noted in HPI.) Assessment and Plan Assessment: Impression: Atypical chest pain. Strongly suspect interstitial lung disease/pulmonary fibrosis. Chronic obstructive pulmonary disease is strongly suspected. Left lower lobe mass, differential diagnoses includes primary bronchogenic carcinoma and or pneumonia involving the left lower lobe posteriorly. Nonspecific pulmonary nodules metastatic disease is a possibility, but felt to be less likely. Benign essential hypertension. Coronary artery disease and previous [place]. Chronic nicotine dependence. Daily marijuana use. Recommendation: Consider discharging the patient home on oral antibiotics, suggest Levaquin 500 milligrams daily for 10 days. Should have outpatient follow-up with me in the office within 2 weeks. Will likely arrange for outpatient CT-guided biopsy of left lower lobe mass. Plavix would have to be placed on hold 5 days prior. Could also consider bronchoscopy and transbronchial biopsy on outpatient basis to evaluate the left lower lobe abnormality. Will likely arrange for a PET scan on outpatient basis. Counseled regarding smoking cessation. Patient will definitely need outpatient follow-up. And he was made aware of this. Time with Patient: Greater than 30
--- NOTE | 2020-02-15 16:34 | P.HPIM ---
History of Present Illness H&P Date: 02/15/20 Chief Complaint: Chest Pain Patient is a 59 apparent male with a known history of hypertension, hyperlipidemia, recent history of [place] status post stent placement done 08/13/2019, currently everyday smoker and history of marijuana use and glaucoma and history of skin cancer came to ER with complaints of chest pain. Patient states that on Saturday night around 8:30 PM patient developed chest pain mainly in the upper chest and across the chest while he was sitting and watching TV. Patient did take nitroglycerin tablet and went to sleep. Upon waking up on Saturday morning patient had chest pain back again. He did take nitroglycerin tablets 5 times throughout the day and eventually presents to ER for evaluation. Patient states that chest pain associated with some shortness of breath and coughing. Denied any nausea vomiting or radiation of the pain. No dizziness or lightheadedness. Patient states that his pain is different from the recent heart attack. Patient was febrile on admission T-max 100.6. Pulse ox of 96.7 on room air on admission. Chest x-ray showed coarse pulmonary density consistent with pulmonary fibrosis. There is change compared to old exam. No heart failure seen. Acute interstitial pneumonia is possible. EKG showed normal sinus rhythm CT angiogram of the chest was done which showed numerous bilateral pulmonary nodules suggestive of malignancy. This could be metastatic disease. Masslike consolidation left lower lobe. Consider both tumor and inflammatory process. Extensive bronchial and interstitial adenopathy suggestive of malignancy. Sarcoidosis is in the differential. No evidence of pulmonary embolism. Laboratory data showed WBC 11.7, hemoglobin 13.4 and platelets 319 D-dimer 1.04 Sodium 133, potassium 4.2, BUN 14 and creatinine 0.82 Troponin x3- proBNP 69 Triglycerides 181 LDL 30 and history of 35 Review of Systems Constitutional: Patient denies any fever or chills . No generalized weakness or weight loss. Abdomen: Patient denied nausea vomiting and diarrhea and abdominal pain. Cardiovascular: patient does have chest pain with minimal short of breath no palpitations. Respiratory: patient denied any cough is from production. No shortness of breath Neurologic: Patient denied any numbness or tingling headache. Musculoskeletal: Patient denies any complaints of joint swelling or deformity. Skin: Negative Psychiatric: Negative Endocrine: No heat or cold intolerance. No recent weight gain. Genitourinary: No dysuria or hematuria. All other 14 point ROS negative except the above Past Medical History Past Medical History: Cancer, Eye Disorder, Hyperlipidemia, Hypertension, Myocardial Infarction ([place]) Additional Past Medical History / Comment(s): GLAUCOMA LT EYE. HX SKIN CANCER ON FACE. STENT CIRC 08/13/19 Last Myocardial Infarction Date:: 2011 History of Any Multi-Drug Resistant Organisms: None Reported Past Surgical History: Heart Catheterization With Stent Past Anesthesia/Blood Transfusion Reactions: No Reported Reaction Date of Last Stent Placement:: 2011 Past Psychological History: No Psychological Hx Reported Smoking Status: Current every day smoker Past Alcohol Use History: Occasional Additional Past Alcohol Use History / Comment(s): SMOKES ABOUT 1PPD SINCE AGE 24 Past Drug Use History: Marijuana Additional Drug Use History / Comment(s): SMOKES MARIJUANA DAILY-KNOWS TO REFRAIN FROM USE FOR AT LEAST 24 HOURS PRIOR TO PROCEDURE - Past Family History Father Family Medical History: Cancer Mother Family Medical History: Cancer Medications and Allergies Home Medications Medication Instructions Recorded Confirmed Type lisinopriL [Zestril] 10 mg PO BID 08/11/19 02/14/20 History Aspirin 81 mg PO DAILY #30 chew 08/14/19 02/14/20 Rx Nitroglycerin Sl Tabs [Nitrostat] 0.4 mg SUBLINGUAL Q5M PRN #25 tab 08/14/19 02/14/20 Rx Clopidogrel [Plavix] 75 mg PO DAILY 02/14/20 02/14/20 History Ezetimibe/Simvastatin [Vytorin 1 tab PO DAILY 02/14/20 02/14/20 History 10-40 mg] Metoprolol Tartrate [Lopressor] 25 mg PO DAILY 02/14/20 02/14/20 History levoFLOXacin 500 mg PO DAILY 10 Days #10 tab 02/15/20 Rx Allergies Allergy/AdvReac Type Severity Reaction Status Date / Time No Known Allergies Allergy Verified 02/14/20 21:08 Physical Exam Vitals: Vital Signs Temp Pulse Pulse Pulse Resp BP BP 02/15/20 08:01 98 F 71 16 137/70 02/15/20 04:40 98 F 88 19 132/70 02/14/20 22:41 98.3 F 77 19 120/70 02/14/20 21:55 99.1 F 73 20 106/68 02/14/20 21:00 78 18 02/14/20 20:30 80 20 114/90 02/14/20 19:19 75 02/14/20 18:53 100.6 F H 79 21 124/71 Pulse Ox 02/15/20 08:01 96 02/15/20 04:40 95 02/14/20 22:41 94 L 02/14/20 21:55 93 L 02/14/20 21:00 95 02/14/20 20:30 94 L 02/14/20 19:19 02/14/20 18:53 96 Intake and Output 02/14/20 02/15/20 02/15/20 22:59 06:59 14:59 Intake Total 52.151 Balance 52.151 Intake: Intake, IV Titration 52.151 Amount Heparin Sod,Pork in 0.45% 52.151 NaCl 25,000 unit In 0.45 % NaCl 1 250ml.bag @ 11.6 UNITS/KG/HR 9.997 mls/hr IV .Q24H [facility] Rx#: [id number] Other: Voiding Method Toilet Toilet Toilet # Voids 1 1 Weight 86.183 kg PHYSICAL EXAMINATION: Patient is lying in the bed comfortably, no acute distress, awake alert and oriented.. HEENT: Normocephalic. Neck is supple. Pupils reactive. Nostrils clear. Oral cavity is moist. Ears reveal no drainage. Neck reveals no JVD, carotid bruits, or thyromegaly. CHEST EXAMINATION: Trachea is central. Symmetrical expansion.no wheezing. Scattered fine crackles. Lung jonas clear to auscultation and percussion. CARDIAC: Normal S1, S2 with no gallops. No murmurs ABDOMEN: Soft. Bowel sounds normal. No organomegaly. No abdominal bruits. Extremities: reveal no edema. No clubbing or cyanosis Neurologically awake, alert, oriented x3 with well-coordinated movements. No focal deficits noted Skin: No rash or skin lesions. Psychiatric: Coperative. Nonsuicidal Musculoskeletal: No joint swelling or deformity. Normal range of motion. Results CBC & Chem 7: 02/15/20 02:33 02/14/20 19:14 Labs: Abnormal Lab Results - Last 24 Hours (Table) 02/14/20 02/14/20 02/14/20 Range/Units 19:14 19:14 19:14 WBC 11.7 H (3.8-10.6) k/uL Eosinophils # 0.8 H (0-0.7) k/uL D-Dimer 1.04 H (<0.60) mg/L FEU Sodium 133 L (137-145) mmol/L Glucose 101 H (74-99) mg/dL AST 14 L (17-59) U/L Triglycerides (<150) mg/dL HDL Cholesterol (40-60) mg/dL 02/15/20 02/15/20 Range/Units 02:33 02:33 WBC 11.7 H (3.8-10.6) k/uL Eosinophils # 1.0 H (0-0.7) k/uL D-Dimer (<0.60) mg/L FEU Sodium (137-145) mmol/L Glucose (74-99) mg/dL AST (17-59) U/L Triglycerides 181 H (<150) mg/dL HDL Cholesterol 35 L (40-60) mg/dL Thrombosis Risk Factor Assmnt - DVT/VTE Prophylaxis DVT/VTE Prophylaxis: Pharmacologic Prophylaxis ordered - Choose All That Apply Each Factor Represents 1 point: Obesity (BMI >25) Each Risk Factor Represents 2 Points: Age 61-74 years Other congenital or acquired thrombophilia - If yes, enter type in comment: No Thrombosis Risk Factor Assessment Total Risk Factor Score: 3 Thrombosis Risk Factor Assessment Level: Moderate Risk Assessment and Plan Assessment: atypical chest pain with recent history of stent placement. Ruled out ACS. Multiple lung nodules.possible malignancy Suspected interstitial lung disease and acute interstitial pneumonia Coronary artery disease in her chest and placement in August 2019 Hypertension Hyperlipidemia Currently everyday smoker and history of marijuana use DVT prophylaxis Plan: Patient will be continued on telemetry monitoring. Continue with serial EKG. Troponin x3-. 2D echocardiogram was ordered to assess for left ventricular function. Cardiology is on board. Pulmonary was consulted due to multiple lung masses. I recommended outpatient follow-up with CT thorax and PET scan as outpatient. Patient will be continued on antibiotics for acute interstitial pneumonia with levofloxacin. Possible discharge once cleared by cardiology. Time with Patient: Greater than 30
== END 2020-02-15 13:50 | disposition home or self-care (01) ==
LOC: EC 18:45 → 3NCARDOBS 20:15
PROVIDERS: ADMIT Hospitalist; ATTEND Hospitalist
DX: R07.89 Other chest pain (principal); E78.5 Hyperlipidemia, unspecified; F12.90 Cannabis use, unspecified, uncomplicated; F17.200 Nicotine dependence, unspecified, uncomplicated; I10 Essential (primary) hypertension; I25.10 Atherosclerotic heart disease of native coronary artery without angina pectoris; I25.2 Old myocardial infarction; J84.10 Pulmonary fibrosis, unspecified; Z03.818 Encounter for observation for suspected exposure to other biological agents ruled out; Z79.02 Long term (current) use of antithrombotics/antiplatelets; Z79.82 Long term (current) use of aspirin; Z79.899 Other long term (current) drug therapy; Z85.828 Personal history of other malignant neoplasm of skin; Z98.61 Coronary angioplasty status; R50.9 Fever, unspecified; R91.8 Other nonspecific abnormal finding of lung field; Z71.6 Tobacco abuse counseling; R91.1 Solitary pulmonary nodule
CPT/HCPCS: 96366 ×2; 96376 ×2; 96365; 99285; 36415; 93005; 93306; 85379; 83880; 80061; 80053; 83690; 83735; 84484 ×2; 85025 ×2; 85610; 85730 ×2; 84145; 71046; 71275; G0378 ×2; U0003; S4990; J1644 ×3; Q9967